=== PATIENT | female | born 1950 | race Caucasian/White ===

== ENCOUNTER 2016-08-22 12:57 | Day surgery (SDC) | payer MEDICARE, OTHER ==
--- NOTE | ~2016-08-22 | EGD ---
EGD REPORT [facility] [address] [address] NAME: MAG ART : [birth year] STATUS : REG SDC PAT#: [id number] AGE: 66 ADM/REG DATE : 08/22/16 MR#: [id number] REPORT SERV DATE: 08/22/16 DICTATED BY: HARLEY ARRINGTON DATE: 08/22/16 REPORT STATUS : Draft [facility]: [facility] DATE: 08/22/16 [facility] Patient Name: Mag Art Date of : 1950 Attending MD: VERN ARRINGTON MD Procedure Date No Time: 08/22/2016 Procedure: Colonoscopy Indications: High risk colon cancer surveillance: Personal history of colonic polyps Medicines: See the Anesthesia note for documentation of the administered medications Complications: No immediate complications. Estimated blood loss: None. Procedure: Pre-Anesthesia Assessment: - ASA Grade Assessment: III - A patient with severe systemic disease. - Prior to the procedure, a History and Physical was performed, and patient medications and allergies were reviewed. The patient's tolerance of previous anesthesia was also reviewed. The risks and benefits of the procedure and the sedation options and risks were discussed with the patient. All questions were answered, and informed consent was obtained. Prior Anticoagulants: The patient has taken no previous anticoagulant or antiplatelet agents. After reviewing the risks and benefits, the patient was deemed in satisfactory condition to undergo the procedure. After I obtained informed consent, the scope was passed under direct vision. Throughout the procedure, the patient's blood pressure, pulse, and oxygen saturations were monitored continuously. The PCF [id number] was introduced through the anus and advanced to the terminal ileum. The ileocecal valve, appendiceal orifice, terminal ileum and rectum were photographed. The entire colon was examined. The colonoscopy was performed without difficulty. The patient tolerated the procedure well. The quality of the bowel preparation was adequate. Findings: The perianal and digital rectal examinations were normal. The terminal ileum appeared normal. A sessile polyp was found in the transverse colon. The polyp was 8 mm in size. The polyp was removed with a hot snare. Resection and retrieval were complete. A sessile polyp was found in the transverse colon. The polyp was 5 mm in size. The polyp was removed with a cold snare. Resection and retrieval EGD REPORT [place] [id number] [facility] [place]. [address] NAME: MAG ART : [birth year] STATUS : REG [facility]#: [id number] AGE: 66 ADM/REG DATE : 08/22/16 MR#: [id number] REPORT SERV DATE: 08/22/16 DICTATED BY: HARLEY ARRINGTON DATE: 08/22/16 REPORT STATUS : Draft [facility]ANSCRIBED BY: [facility] DATE: 08/22/16 were complete. A sessile polyp was found in the ascending colon. The polyp was 8 mm in size. The polyp was removed with a hot snare. Resection and retrieval were complete. A sessile polyp was found in the ascending colon. The polyp was 5 mm in size. The polyp was removed with a cold snare. Resection and retrieval were complete. Two sessile polyps were found in the sigmoid colon. The polyps were medium in size. These polyps were removed with a cold snare. Resection and retrieval were complete. A few medium-mouthed diverticula were found in the entire colon. Non-bleeding internal hemorrhoids were found during retroflexion and were Grade I (internal hemorrhoids that do not prolapse). No other significant abnormalities were identified in a careful examination of the remainder of the colon. Impression: - The examined portion of the ileum was normal. - One 8 mm polyp in the transverse colon. Resected and retrieved. - One 5 mm polyp in the transverse colon. Resected and retrieved. - One 8 mm polyp in the ascending colon. Resected and retrieved. - One 5 mm polyp in the ascending colon. Resected and retrieved. - Two medium polyps in the sigmoid colon. Resected and retrieved. - Diverticulosis in the entire examined colon. - Non-bleeding internal hemorrhoids. Recommendation: - Patient has a contact number available for emergencies. The signs and symptoms of potential delayed complications were discussed with the patient. Return to normal activities tomorrow. Written discharge instructions were provided to the patient. - High fiber diet indefinitely. - Discharge patient to home. - Continue present medications. - Await pathology results. - Repeat colonoscopy in 2 years for surveillance. Procedure Code(s): --- Professional --- 72630, Colonoscopy, flexible, proximal to splenic flexure; with removal of tumor(s), polyp(s), or other lesion(s) by snare technique Diagnosis Code(s): --- Professional --- EGD REPORT [address] [place]. [address] NAME: MAG ART : 52 STATUS : REG [facility]#: [id number] AGE: 66 ADM/REG DATE : 08/22/16 MR#: [id number] REPORT SERV DATE: 08/22/16 DICTATED BY: HARLEY ARRINGTON DATE: 08/22/16 REPORT STATUS : Draft TRANSCRIBED BY: [employer] DATE: 08/22/16 K64.0, First degree hemorrhoids K57.30, Diverticulosis of large intestine without perforation or abscess without bleeding D12.5, Benign neoplasm of sigmoid colon D12.2, Benign neoplasm of ascending colon D12.3, Benign neoplasm of transverse colon Z86.010, Personal history of colonic polyps CPT copyright 2013 [employer]. All rights reserved. The codes documented in this report are preliminary and upon property insurance claims examiner review may be revised to meet current compliance requirements. VERN ARRINGTON MD 08/22/2016 3:10 PM This report has been signed electronically. Number of Addenda: 0 Note Initiated On: 08/22/2016 2:32 PM Scope Withdrawal Time 0 hours 11 minutes 24 seconds [address] [id number]
[~2016-08-22 12:57] MED LIST: SYN125 PO; X5 PO
== END 2016-08-22 23:59 | disposition home or self-care (01) ==
LOC: DMU 12:57
PROVIDERS: Internal Medicine Gastroenterology
PROC: 0DBL8ZZ Excision of Transverse Colon, Via Natural or Artificial Opening Endoscopic (ICD-10-PCS; 2016-08-22)
PROC: 0DBK8ZZ Excision of Ascending Colon, Via Natural or Artificial Opening Endoscopic (ICD-10-PCS; 2016-08-22)
PROC: 0DBN8ZZ Excision of Sigmoid Colon, Via Natural or Artificial Opening Endoscopic (ICD-10-PCS; principal; 2016-08-22 14:30)
DX: Z12.11 Encounter for screening for malignant neoplasm of colon (principal); Z86.010 Personal history of colon polyps; D12.3 Benign neoplasm of transverse colon; D12.2 Benign neoplasm of ascending colon; K63.5 Polyp of colon; K57.30 Diverticulosis of large intestine without perforation or abscess without bleeding; K64.0 First degree hemorrhoids; K76.0 Fatty (change of) liver, not elsewhere classified; G47.33 Obstructive sleep apnea (adult) (pediatric); M19.90 Unspecified osteoarthritis, unspecified site; F41.9 Anxiety disorder, unspecified; E03.9 Hypothyroidism, unspecified; E66.01 Morbid (severe) obesity due to excess calories; Z68.41 Body mass index [BMI] 40.0-44.9, adult; Z87.891 Personal history of nicotine dependence; Z99.89 Dependence on other enabling machines and devices; Z79.899 Other long term (current) drug therapy; Z98.41 Cataract extraction status, right eye; Z98.42 Cataract extraction status, left eye; Z96.1 Presence of intraocular lens; Z90.49 Acquired absence of other specified parts of digestive tract; Z98.890 Other specified postprocedural states
CPT/HCPCS: 88305